=== PATIENT | male | born 1960 | race Caucasian/White ===

== ENCOUNTER 2020-09-14 10:57 | Outpatient (CLI) | payer OTHER, SELFPAY ==
--- NOTE | ~2020-09-14 | MR_ITS ---
EXAMINATION: MR knee RT wo con DATE: 09/14/2020 11:47 INDICATION: Anterior cruciate ligament tear. Internal derangement. Right knee pain. TECHNIQUE: Magnetic resonance imaging (MRI) of the right knee was performed without intravenous contr ast. Sequences included axial PD-weighted FS FSE, coronal PD-weighted FSE and PD-weighted FS FSE, sag ittal PD-weighted FSE, and sagittal T2-weighted FS FSE. COMPARISON: None. FINDINGS: Medial compartment: There is a complex tear involving body and posterior root of medial meniscus. There is full-thickness cartilage loss of femoral condyle involving the central and posterior articular surface with cortica l irregularity and mild subchondral edema-like signal intensity. There is cartilage surface irregular ity of tibial condyle. There are marginal osteophytes. Lateral compartment: There is a complex tear of posterior horn of lateral meniscus. Lateral compartment cartilage is sushil l. Patellofemoral compartment: Patellar cartilage is normal. Trochlear cartilage is normal. Ligaments and tendons: There is a complete tear of anterior cruciate ligament. There are changes of low-grade sprains of med ial collateral ligament and fibular collateral ligament characterized by thickening and increased sig nal intensity proximally. There is mild patellar tendinopathy. Fluid: There is a moderate-sized knee joint effusion. Heterogeneous signal intensity in Hoffa's fat pad is l ikely hematoma. There is trace fluid in a Medrano's cyst. There is mild prepatellar and superficial inf rapatellar bursitis. There is subcutaneous edema about the knee. IMPRESSION: 1. Severe chondrosis of medial compartment. 2. Complete tear of anterior cruciate ligament. 3. Tears of medial and lateral menisci. 4. Moderate-sized knee joint effusion. Reviewed, dictated and finalized at location A.
== END 2020-09-14 10:58 ==
PROVIDERS: PCP Nurse Practitioner Adult Health; Visit Provider Orthopaedic Surgery
DX: M25.461 Effusion, right knee (principal); S83.281A Other tear of lateral meniscus, current injury, right knee, initial encounter; S83.241A Other tear of medial meniscus, current injury, right knee, initial encounter; S83.511A Sprain of anterior cruciate ligament of right knee, initial encounter; X58.XXXA Exposure to other specified factors, initial encounter
CPT/HCPCS: 73721

== ENCOUNTER 2022-02-08 19:40 | Emergency (ER) | payer OTHER, SELFPAY ==
[2022-02-08 19:45] VITALS: BP 160/88; PULSE 72; RESP 19; TEMP 36; O2SAT 99
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
== END 2022-02-08 20:20 | disposition home or self-care (01) ==
PROVIDERS: Emergency Provider Nurse Practitioner; PCP Nurse Practitioner Adult Health
DX: J06.9 Acute upper respiratory infection, unspecified (principal); Z20.822 Contact with and (suspected) exposure to COVID-19; Z87.891 Personal history of nicotine dependence; M19.90 Unspecified osteoarthritis, unspecified site; K21.9 Gastro-esophageal reflux disease without esophagitis; I10 Essential (primary) hypertension; Z79.82 Long term (current) use of aspirin
CPT/HCPCS: 87426; 87804; 99213; C9803; G0463

== ENCOUNTER 2022-02-27 17:34 | Emergency (ER) | payer OTHER, SELFPAY ==
--- NOTE | ~2022-02-27 | XR_ITS ---
EXAMINATION: XR chest 2V DATE: 02/27/2022 18:31 INDICATION: Cough. TECHNIQUE: Frontal and lateral views of the chest were obtained. COMPARISON: CT abdomen and pelvis 09/19/2018 FINDINGS: There is no pneumonia, pleural effusion, or pneumothorax. The heart size is normal. There a re prominent paracardial fat pads. IMPRESSION: 1. No acute cardiopulmonary disease. Reviewed, dictated and finalized at location A. OLOGIC TECH
[2022-02-27 17:50] VITALS: BP 149/99; PULSE 73; RESP 16; TEMP 36.4; O2SAT 100
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
== END 2022-02-27 19:03 | disposition home or self-care (01) ==
PROVIDERS: Emergency Provider Nurse Practitioner; PCP Nurse Practitioner Adult Health
DX: J06.9 Acute upper respiratory infection, unspecified (principal); Z20.822 Contact with and (suspected) exposure to COVID-19; Z87.891 Personal history of nicotine dependence; M19.90 Unspecified osteoarthritis, unspecified site; K21.9 Gastro-esophageal reflux disease without esophagitis; I10 Essential (primary) hypertension; A79.82 Anaplasmosis [A. phagocytophilum]
CPT/HCPCS: 71046; 87081; 87426; 87804; 87880; 99213; C9803; G0463

== ENCOUNTER 2022-12-31 07:46 | Outpatient (CLI) | payer OTHER, SELFPAY ==
--- NOTE | ~2022-12-31 | XR_ITS ---
EXAMINATION: XR chest 2V 12/31/2022 08:30 INDICATION: 2 view chest PROCEDURE: 2 view chest COMPARISON: 02/27/2022 FINDINGS: There is a nodular density left upper thorax. No focal pneumonia, edema, pleural effusion. The cardiomediastinal silhouette is within normal limits. There are no pleural effusions. There is no pneumothorax suspected. IMPRESSION: 1: Nodular density left upper thorax. Recommend correlation with CT chest without contrast. Reviewed, dictated and finalized at location B. RETE CURER IMPRESSION: 1: Nodular density left upper thorax. Recommend correlation with CT chest with out contrast.
== END 2022-12-31 07:47 | disposition home or self-care (01) ==
PROVIDERS: PCP Family Medicine; Visit Provider Nurse Practitioner Family
DX: R59.0 Localized enlarged lymph nodes (principal)
CPT/HCPCS: 71046

== ENCOUNTER 2023-01-28 14:07 | Outpatient (CLI) | payer OTHER, SELFPAY ==
--- NOTE | ~2023-01-28 | CT_ITS ---
Clinical Indication: Enlarged lymph nodes CT Scan of the Chest with Contrast: Technique: Contiguous sections were acquired throughout the chest after intravenous administration of 75 cc of Omnipaque 350. Dose reduction technique was used on this scan by utilizing automated exposu re control and iterative reconstruction technique. The dose-length product (DLP) was 329.40 mGy-cm. Findings: There is no evidence of any significant mediastinal, hilar or axillary lymphadenopathy. There is no f illing defect in the pulmonary arterial tree to suggest pulmonary embolus. There is no evidence of ao rtic dissection or aneurysm. There is no evidence of pleural or pericardial effusion. The lungs are clear. No pulmonary nodules or infiltrates are noted. Images through the upper abdomen reveal probable diffuse fatty infiltration of liver. Impression: No lymphadenopathy. No abnormality seen in the thorax. Diffuse fatty infiltration of liver. Reviewed, dictated and finalized at [facility]. NT SOURCING SPECIALIST Impression: No lymphadenopathy. No abnormality seen in the thorax. Diffuse fatty infiltration of liver.
[2023-01-28 14:21] LABS: Estimated Glomerular Filt Rate > 60
== END 2023-01-28 14:08 | disposition home or self-care (01) ==
PROVIDERS: PCP Family Medicine; Visit Provider Nurse Practitioner Family
DX: R93.89 Abnormal findings on diagnostic imaging of other specified body structures (principal); R59.0 Localized enlarged lymph nodes
CPT/HCPCS: 71260; Q9967

== ENCOUNTER 2023-03-08 07:52 | Outpatient (CLI) | payer OTHER, SELFPAY ==
--- NOTE | ~2023-03-08 | XR_ITS ---
Left Shoulder Technique: AP and scapular Y views were obtained. Clinical History: Injury Findings: No fracture or dislocation is seen. Osseous alignment is anatomic. There is mild AC joint d egenerative change. Glenohumeral joint intact. Soft tissues are unremarkable. Impression: No acute fracture or dislocation seen. Degenerative changes AC joint. Reviewed, dictated and finalized at location . IRER HAIRSPRING Impression: No acute fracture or dislocation seen. Degenerative changes AC joint.
== END 2023-03-08 07:53 | disposition home or self-care (01) ==
LOC: ANHIMG 07:54
PROVIDERS: PCP Nurse Practitioner Family; Visit Provider Nurse Practitioner Family
DX: S49.92XA Unspecified injury of left shoulder and upper arm, initial encounter (principal); M19.012 Primary osteoarthritis, left shoulder; X58.XXXA Exposure to other specified factors, initial encounter
CPT/HCPCS: 73030

== ENCOUNTER 2023-05-23 16:22 | Outpatient (CLI) | payer OTHER, SELFPAY ==
--- NOTE | ~2023-05-23 | XR_ITS ---
XR lumbar spine 2-3V 05/23/2023 16:50 Indication: Low back pain Procedure: 3 views lumbar spine Comparison: No prior studies for comparison. Findings: Vertebral body heights are maintained. There is disc narrowing at L4-5 and L5-S1. There is facet hypertrophy at these levels. No acute fracture or traumatic malalignment. No evidence for spond ylolisthesis. Impression: 1: Mild-moderate lumbar spondylosis. Reviewed, dictated and finalized at location A. Impression: 1: Mild-moderate lumbar spondylosis.
--- NOTE | ~2023-05-23 | XR_ITS ---
XR_CERV2-3V_CR 05/23/2023 16:51 Indication: Cervicalgia Procedure: 4 view cervical spine Comparison: No prior studies for comparison. Findings: There is straightening of cervical lordosis. No prevertebral soft tissue swelling. There is disc narrowing and endplate hypertrophy at C4-5, C5-6 and C6-7 with reversal of cervical lordosis ce ntered at C6-7. There is multilevel uncinate and facet hypertrophy. There are emphysematous changes i n the lung apices. Impression: 1: Severe cervical spondylosis. Reviewed, dictated and finalized at location A. Impression: 1: Severe cervical spondylosis.
== END 2023-05-23 16:23 | disposition home or self-care (01) ==
LOC: ANHIMG 16:23
PROVIDERS: PCP Nurse Practitioner Family; Visit Provider Nurse Practitioner Family
DX: M47.896 Other spondylosis, lumbar region (principal); M47.892 Other spondylosis, cervical region
CPT/HCPCS: 72040; 72100

== ENCOUNTER 2023-05-24 08:14 | Outpatient (CLI) | payer BC, OTHER, SELFPAY ==
--- NOTE | ~2023-05-24 | XR_ITS ---
EXAMINATION: XR chest 2V DATE: 05/24/2023 08:46 INDICATION: Cough. TECHNIQUE: Frontal and lateral views of the chest were obtained. COMPARISON: Chest 2 views 12/31/22 FINDINGS: There is no pneumonia, pleural effusion, or pneumothorax. The heart size is normal. There a re prominent paracardial fat pads. IMPRESSION: 1. No acute cardiopulmonary disease. Reviewed, dictated and finalized at location A.
[2023-05-24 09:26] LABS: Influenza A QL RT-PCR Negative (Negative); Influenza B QL RT-PCR Negative (Negative); RSV RNA, RT-PCR Negative (Negative); SARS-CoV-2 RNA PCR Negative (Negative)
[2023-05-24 10:08] LABS: Folic Acid 3.6 ng/mL (2.76->20)
[2023-05-27 18:47] LABS: Red Blood Cell Folate 457 ng/mL RBC (>280)
[2023-06-18 10:23] LABS: Vitamin B6 59.3 ng/mL (2.1-21.7)
== END 2023-05-24 08:15 | disposition home or self-care (01) ==
LOC: ANHLAB 08:15
PROVIDERS: PCP Nurse Practitioner Family; Visit Provider Nurse Practitioner Family
DX: R05.9 Cough, unspecified (principal); R41.3 Other amnesia
CPT/HCPCS: 36415; 71046; 82607; 82746; 82747; 84207; 87637

== ENCOUNTER 2023-08-01 06:37 | Outpatient (CLI) | payer OTHER, SELFPAY ==
--- NOTE | 2023-08-06 08:57 | WPDNEUROLOGY ---
Neurology EEG Report General Information Date of Study: 08/01/23 TEST eeg DIAGNOSIS Mild cognitive impairment CONDITION OF RECORDING awake drowsy and sleep EEG NUMBER [id number] CLINICAL HISTORY patient reports he has noted a decline in his memory. He forgets what he was going into a room for, having difficulties with his work. There is family history of dementia. EEG DESCRIPTION Basic resting occipital frequency consists of low to medium voltage 8 to 10 hertz per 2nd alpha. Low-voltage beta activity seen diffusely admixed with waxing and waning posterior alpha rhythm. Hyperventilation not done. Photic stimulation produced normal drive. Bilateral symmetrical sleep activity is noted with symmetrical spindles as well. Non paroxysmal. Nonfocal. Non lateralizing. IMPRESSION Normal record
== END 2023-08-01 06:38 | disposition home or self-care (01) ==
LOC: ANHNEURO 06:38
PROVIDERS: PCP Nurse Practitioner Family; Visit Provider Psychiatry & Neurology Neurology
DX: G31.84 Mild cognitive impairment of uncertain or unknown etiology (principal); Z87.828 Personal history of other (healed) physical injury and trauma
CPT/HCPCS: 95816

== ENCOUNTER 2023-08-03 07:33 | Outpatient (CLI) | payer OTHER, SELFPAY ==
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
== END 2023-08-03 07:34 | disposition home or self-care (01) ==
PROVIDERS: PCP Nurse Practitioner Family; Visit Provider Psychiatry & Neurology Neurology
DX: G31.84 Mild cognitive impairment of uncertain or unknown etiology (principal); Z87.828 Personal history of other (healed) physical injury and trauma; M47.22 Other spondylosis with radiculopathy, cervical region; R90.82 White matter disease, unspecified
CPT/HCPCS: 70551

== ENCOUNTER 2023-12-05 13:02 | Outpatient (CLI) | payer OTHER, SELFPAY ==
[2023-12-05 14:04] LABS: Strep Group A RT-PCR NOT DETECTED (Negative)
[2023-12-05 14:22] LABS: Influenza A QL RT-PCR Negative (Negative); Influenza B QL RT-PCR Negative (Negative); RSV RNA, RT-PCR Negative (Negative); SARS-CoV-2 RNA PCR Negative (Negative)
== END 2023-12-05 13:03 | disposition home or self-care (01) ==
LOC: ANHLAB 13:05
PROVIDERS: PCP Nurse Practitioner Family; Visit Provider Nurse Practitioner Family
DX: J02.9 Acute pharyngitis, unspecified (principal); R05.9 Cough, unspecified; J34.89 Other specified disorders of nose and nasal sinuses; Z20.822 Contact with and (suspected) exposure to COVID-19
CPT/HCPCS: 87637; 87651

== ENCOUNTER 2024-03-11 08:23 | Outpatient (CLI) | payer OTHER, SELFPAY ==
--- NOTE | ~2024-03-11 | XR_ITS ---
EXAMINATION: XR sacrum coccyx min 2V DATE: 03/11/2024 08:44 INDICATION: Unspecified fall, initial encounter. TECHNIQUE: 3 views of the sacrum and coccyx were obtained. COMPARISON: None. FINDINGS: Alignment is normal. No fracture. There is mild osteoarthritis of the sacroiliac joints. Th ere is moderate lumbar spondylosis. IMPRESSION: 1. No fracture. Reviewed, dictated and finalized at location A. ASSEMBLY UTILITY WORKER IMPRESSION: 1. No fracture.
== END 2024-03-11 08:24 | disposition home or self-care (01) ==
LOC: ANHIMG 08:26
PROVIDERS: PCP Nurse Practitioner Family; Visit Provider Nurse Practitioner Family
DX: M53.3 Sacrococcygeal disorders, not elsewhere classified (principal); W19.XXXA Unspecified fall, initial encounter
CPT/HCPCS: 72220

== ENCOUNTER 2024-05-01 00:35 | Day surgery (SDC) | payer OTHER, SELFPAY ==
[2024-04-23 12:21] VITALS: BMI 32.3
--- OUTSIDE RECORDS SUMMARY | 2024-05-01 00:38 | XMS_ITS | Clinical Summary ---
Author Organization [facility] Care Team Providers Care Industrial Trainer Name Role Phone Unavailable Primary Care Provider Unavailabl e Social History Tobacco Use Types Packs/Day Years Used Date Smoking Tobacco: Never Assessed Sex and Gender Information Value Date Recorded Sex Assigned at Not on file Legal Sex Male 1:49 AM CDT Gender Identity Not on file Sexual Orientation Not on file Plan of Treatment Health Maintenance Due Date Last Done Comments Hepatitis C Virus (HCV) Screening 1960 Colonoscopy 08/03/2007 Colorectal Cancer Screening 08/03/2007 Cologuard 2012 Immunochemical Fecal Occult Blood 2012 Pneumococcal Immunization (5 0+ years) (1 of 1 - PCV) 2012 Zoster Immunization (1 of 2) 2012 PSA Discussion 2017 Influenza Immunization (#1) 2023 SARS-COV-2 Immunization ( season) 2023 01/31/2021, 05/23/2020, 04/14/2020 Respiratory Syncytial Virus (RSV) Immunization (Adult) (1 - 1-dose 75+ series) 2037 DTaP/Tdap/Td Immunization Discontinued 06/10/2018 TdaP Immunization Completed 06/10/2018 Hepatitis B Immunization Aged Out No longer eligible based on patient's age to complete this topic Meningococcal Immunization (ACWY) Aged Out No longer eligible based on patient's age to complete this topic Pneumococcal Immunization Combined Aged Out No longer eligible based on patient's age to complete this topic Rotavirus Immunization Aged Out No lo nger eligible based on patient's age to complete this topic
--- OUTSIDE RECORDS SUMMARY | 2024-05-01 00:38 | XMS_ITS | Clinical Summary ---
Author Organization [facility] Address [address] [place] [id number] Phone Care Team Providers Care Diagrammer Name Role Phone Unavailable Primary Care Provider Unavailabl e Social History Tobacco Use Types Packs/Day Years Used Date Smoking Tobacco: Never Assessed Sex and Gender Information Value Date Recorded Sex Assigned at Not on file Legal Sex Male 4:02 PM SR. PRICING ANALYST Gender Identity Not on file Sexual Orientation Not on file Plan of Treatment Health Maintenance Due Date Last Done Comments DTAP/TDAP/TD VACCINES (1 - Tdap) 1981 COLORECTAL SCREENING 08/03/2007 Colorectal Cancer Screening 08/03/2007 FIT-DNA Q 3 years 08/03/2007 FIT/FOBT Q 1 year 08/03/2007 Flex Sig/CT Colonography Q 5 years 08/03/2007 ZOSTER VACCINE (1 of 2) 2012 INFLUENZA VACCINE (#1) 2023 RSV VACCINE (60+ or ) (1 - 1-dose 75+ series) 2037 PNEUMOCOCCAL VACCINE 0-49 YEARS Aged Out No longer eligible based on patient's age to complete this topic Insurance [employer] [id number]
--- OUTSIDE RECORDS SUMMARY | 2024-05-01 00:38 | XMS_ITS | Encounter Summary ---
Author Organization [facility] Address [address] [place] [address] Phone Care Team Providers Care Director Sales And Marketing Name Role Phone Gina West FLUME TENDER Primary Care Provider [phone] Unknown, Notinfile Primary Care Provider Unavail Mariella Jay FLUME TENDER Primary Care Provider [phone] Encounter Details Date Type Department Care Team (Latest Contact Info) Description 04/23/2022 Orders Only [facility] Scanning, Provider Social History Tobacco Use Types Packs/Day Years Used Date Smoking Tobacco: Former Cigarettes 1.5 15 1 981 - 1995 Smokeless Tobacco: Never AUDIT-C Answer Date Recorded Q1: How often do you have a drink containing alcohol? Never 03/20/2022 Q2: How many drinks containi ng alcohol do you have on a typical day when you are drinking? Patient does not drink Q3: How often do you have si x or more drinks on one occasion? Never 03/20/2022 Sex and Gender Information Value Date Recorded Sex Assigned at Not on file Legal Sex Male 11:46 AM ENFORCEMENT SAFETY OFFICER Gender Identity Male 02/13/2021 12:32 PM ENFORCEMENT SAFETY OFFICER Sexual Orientation Straight 09/22/2020 1: 13 PM CDT documented as of this encounter Plan of Treatment Not on file documented as of this encounter Goals Goal Patient Goal Type Associated Problems Recent Progress Patient-Stated? Author ABDULKADIR Chronic Pain Care Plan Chronic Care Management Worsening( 1:27 PM CDT) Jessica Faulkner RN Note: Problem: Chronic Pain Goals: 1. Minimize further functional decline 2. Maximize quality of life 3. Control pain Strategies: - Activity/exercise program recommendation - Conservative stepwise pain medicine strategy with multi-disciplinary approach - Recommend healthy lifestyle strategies and compensatory methods as needed documented as of this encounter Procedures Procedure Name Priority Date/Time Associated Diagnosis Comments CARDIOLOGY DOCUMENT SCAN 04/23/2022 documented in this encounter Results * Cardiology Document Scan (04/23/2022) Anatomical Region Laterality Modality Other us Provider Scanning [facility] PROCEDURES Final Result documented in this encounter Visit Diagnoses Not on filedocumented in this encounter Additional Health Concerns Infection Onset Date Last Indicated Resolved Time COVID: Suspected 01/26/2024 01/26/2024 01/26/2024 7:47 PM ENFORCEMENT SAFETY OFFICER documented as of this encounter Care Teams Director Sales And Marketing Relationship Specialty Start Date End Date Gina West NP [facility] [address] PCP - General Nurse Practitioner 09/21/21 11/26/22 Unknown, Notinfile PCP - General 11/27/22 01/06/24 Mariella Moon NP [address] [place] [address] PCP - General Family Medicine 01/07/24 documented as of this encounter
--- OUTSIDE RECORDS SUMMARY | 2024-05-01 00:38 | XMS_ITS | Encounter Summary ---
Author Organization [facility] Address [address] [place] [address] Phone Care Team Providers Care Welder Apprentice Arc Name Role Phone Gina West PARTS SALES ADVISOR Primary Care Provider [phone] Unknown, Notinfile Primary Care Provider Unavail Mariella Jay PARTS SALES ADVISOR Primary Care Provider [phone] Encounter Details Date Type Department Care Team (Latest Contact Info) Description 05/03/2022 Orders Only [facility] Scanning, Provider [...] on file Legal Sex Male 11:46 AM HIDE SPREADER Gender Identity Male 02/13/2021 12:32 PM HIDE SPREADER Sexual Orientation Straight 09/22/2020 1: 13 PM [...] Date/Time Associated Diagnosis Comments CARDIOLOGY DOCUMENT SCAN 05/03/2022 documented in this encounter Results * Cardiology Document Scan (05/03/2022) Anatomical Region Laterality Modality Other us Provider Scanning [facility] CARDIAC SERVICES PROCEDURES Final Result documented in this encounter Visit Diagnoses Not on filedocumented in this encounter Additional Health Concerns Infection Onset Date Last Indicated Resolved Time COVID: Suspected 01/26/2024 01/26/2024 01/26/2024 7:47 PM HIDE SPREADER documented as of this encounter Care Teams Welder Apprentice Arc Relationship Specialty Start Date End Date Gina West NP [facility] [place] [address] PCP - General Nurse Practitioner 09/21/21 11/26/22 Unknown, Notinfile PCP - General 11/27/22 01/06/24 Mariella Moon NP [address] [place] [address] PCP - General Family Medicine 01/07/24 documented as of this encounter
--- OUTSIDE RECORDS SUMMARY | 2024-05-01 00:38 | XMS_ITS | Clinical Summary ---
Author Organization [facility] Address [address] [place] [address] Care Team Providers Care Activity Coordinator Name Role Phone Erik Szymanski MD Unavailable [phone] Allergies Active Allergy Reactions Criticality Noted Date Comments Tape Unknown 05/22/2017 Medications vitamin B-12 1000 MCG tablet Take 1,000 mcg by mouth daily. Active escitalopram 20 MG tabletIndications :Current severe episode of major depressive disorder without psychotic features without prior episode ([facility]HS/HCC) Take 1 tablet (20 mg total) by mouth daily. 30 tablet 5 9 Active aripiprazole 2 MG tablet Take 2 mg by mouth daily. 1 9 Active aspirin 81 MG tablet Take 1 tablet (81 mg total) by mouth daily. 9 Active HYDROXYZINE 25 MG tabletIndications :Panic attack TAKE 1 TABLET EVERY 8 HOURS NEEDED FOR ANXIETY. 45 tablet 1 9 Active trazodone 50 MG tabletIndications :Current severe episode of major depressive disorder without psychotic features without prior episode ([facility] HHS/HCC),Insomnia due to other mental disorder Take 1 tablet (50 mg total) by mouth nightly at bedtime. 30 tablet 1 9 Active clonazePAM 0.5 MG tablet Take 0.5 mg by mouth 2 (two) times daily. 0 9 Active OMEPRAZOLE 40 MG capsuleIndication s:Gastroesophagea l reflux disease, esophagitis presence not specified TAKE 1 CAPSULE DAILY . TAKE 30 MINUTES BEFORE A MEAL. 90 capsule 1 9 Active nitroglycerin 0.[address] 1 tablet (0.4 mg total) under the tongue every 5 (five) minutes as needed for Chest Pain. If taking the 3rd dose call 911 25 tablet 1 9 Active LOSARTAN 25 MG tabletIndications :Essential hypertension TAKE 1 TABLET DAILY DIRECTED. 30 tablet 1 9 Active isosorbide mononitrate ER 30 MG 24 hr tablet Take 1 tablet (30 mg total) by mouth daily. Call to make and keep appt 7 tablet 0 Active Active Problems Problem Noted Date Diagnosed Date ANAYA (dyspnea on exertion) 06/03/2018 Essential hypertension 06/03/2018 Mixed hyperlipidemia 03/14/2018 Assessment & Plan (03/14/2018 9:31 AM RRT): Will d/c crestor and in a couple of weeks can try taking atorvastatin Current severe episode of ma jeanine depressive disorder without psychotic features without prior episode ([facility]) 02/17/2018 Assessment & Plan (04/30/2018 2:44 PM CDT): Psychologist working on getting appt with psychiatrist. He has a signed release of medical records form for us to send our notes to them. In meantime will con't lexapro and start trazodone 50mg qHs to see if helps with frequent awakenings. Assessment & Plan (03/14/2018 9:30 AM RRT): Encouraged to con't with therapist and to get on schedule with psychiatrist. He voiced understanding Will increase lexapro to 20mg daily and con't PRN atarax Assessment & Plan (02/17/2018 3:12 PM RRT): Will start lexapro. Discussed side effects and that may take a while to take effect. -Placed order for psych they will call and let us know if we need to send anything to the office -Go to ED with SI thoughts become plan. They are both aware and understand Panic attack 02/17/2018 Assessment & Plan (02/17/2018 3:13 PM RRT): Will do PRN atarax as lexapro is kicking in Chest pain 11/01/2017 Immunizations Name Administration Dates Next Due Tdap (Generic) 06/10/2018 Tdap (Historical Only-select from magnify glass) 06/10/2018 Family History Medical History Relation Comments Cancer Brother Heart Disease Brother Diabetes Father Heart Disease Father Heart Disease Maternal Grandfather Heart Disease Maternal Grandmother Dementia Mother Heart Disease Mother Parkinson's Disease Mother Heart Disease Paternal Grandfather Heart Disease Paternal Grandmother Relation Status Comments Brother Father Maternal Grandfather Maternal Grandmother Mother Paternal Grandfather Paternal Grandmother Social History Tobacco Use Types Packs/Day Years Used Date Smoking Tobacco: Former Cigarettes Q uit: 11/02/1995 Smokeless Tobacco: Never Alcohol Use Standard Drinks/Week Comments No 0 (1 standard drink = 0.6 oz pur e alcohol) AUDIT-C Answer Date Recorded Frequency of Alcohol Consumption Never 11/01/2017 Average Number of Drinks Not on file 018 Frequency of Binge Drinking Not on file 10/13 PHQ-2 Answer Date Recorded PHQ-2 Score 6 05/09/2018 Sex and Gender Information Value Date Recorded Sex Assigned at Not on file Legal Sex Male 7:43 PM CDT Gender Identity Not on file Sexual Orientation Straight 11/01/2017 12 :33 PM CDT Last Filed Vital Signs Vital Sign Reading Time Taken Comments Blood Pressure 133/85 06/16/2018 6:22 PM CDT Pulse 66 06/16/2018 6:22 PM CDT Temperature 36.7 C (98.1 F) 06/16/2018 6:22 PM CDT Respiratory Rate 18 06/16/2018 6:22 PM CDT Oxygen Saturation 95% 06/16/2018 6:22 PM CDT Inhaled Oxygen Concentration - - Weight 93 kg (205 lb) 06/16/2018 5:09 PM CDT Height 167.6 cm (5' 6 ) 06/16/2018 5:09 PM CDT Body Mass Index 33.09 06/16/2018 5:09 PM CDT Plan of Treatment Health Maintenance Due Date Last Done Comments Annual Physical 1965 Hepatitis C 1980 Zoster Vaccines (1 of 2) 2012 COVID-19 Vaccine (2023-2 5 season) 2023 Influenza Adult (#1) 2023 Colorectal Cancer Screening Colonoscopy (10 Years) 04/10/2027 04/10/2017 DTaP, Tdap and Td Vaccines ( 3 - Td or Tdap) 06/10/2028 06/10/2018, 06/10/2018 RSV Immunization or 60+ Years (1 - 1-dose 75+ series) 2037 Meningococcal B Vaccine Aged Out No l onger eligible based on patient's age to complete this topic Meningococcal Vaccine Aged Out No clay nathalie eligible based on patient's age to complete this topic Pneumococcal Vaccine: Pediatrics (0 to 5 Years) and At-Risk Patients (6 to 64 Years) Aged Out No longer eligible b ased on patient's age to complete this topic RSV Immunizations Under 20 Months Aged Out No longer eligible b ased on patient's age to complete this topic Procedures Procedure Name Priority Date/Time Associated Diagnosis Comments COLONOSCOPY Routine 04/10/2017 12:00 AM RRT from Last 3 Months or Most Recently Relevant to Health Maintenance Results * Colonoscopy (04/10/2017 12:00 AM RRT) 04/10/2017 04/10/2017 Narrative [employer] TO EPIC CONVERSION - 04/10/2017 12:00 AM RRT Documented hx of procedure Procedure Note Meghana Angeles MD - 12/15/2017 Documented hx of procedure us Generic Jean Claude Angeles MD GI PROCEDURE ORDERABLES Final Result Performing Organization Address City/State/[facility] Co de Phone Number [employer] TO EPIC CONVERSION from Last 3 Months or Most Recently Relevant to Health Maintenance Insurance * Guarantor: Finn Blood V Account Type Relation to Patient Date of Phone Billing Address Personal/Family Self 1960 [address] [place] [address] [facility] Member Subscriber Plan / Payer (Ef fective 2020-Present) Name:Finn Blood V Relation to Subscriber:Self Name:Finn Blood V Payer ID:[id number] (NAIC) Type:Not on file Address: [address] [address] [place] [address] * Guarantor: Finn Blood V Account Type Relation to Patient Date of Phone Billing Address Personal/Family Self 1960 [address] [place] [address] Care Teams Activity Coordinator Relationship Specialty Start Date End Date Erik Szymanski MD [facility] [address] [place], [place] [id number] [place] [employer]ands[employer] Operator CARDIOVASCULAR DISEASE 11/25/17
--- OUTSIDE RECORDS SUMMARY | 2024-05-01 00:38 | XMS_ITS | CONTINUITY OF CARE DOCUMENT ---
Author Name karenfrida tae Address Unknown Organization [facility] Address [address] [address] [place] [address] Phone [phone] Care Team Providers Care Blood Bank Laboratory Technologist Name Role Phone Kulwant Saba MD Unavailable [phone] CHRISTY VILLELA, HARSH Unavailable CHRISTY VILLELA, HARSH Unavailable [phone] PROBLEMS Condition Status Date Provider Notes Cardiology examination active Kulwant roe MD HTN, unspecified active Kulwant Saba MD Hyperlipidemia active Kulwant Saba MD Obesity active Kulwant Saba MD ENCOUNTERS Date Type Provider Location Encounter Diag nosis - In-person encounter Office Visit Kulwant Saba MD [place] [facility] HyperlipidemiaObesity - In-person encounter Office Visit Kulwant Saba MD [place] [facility] Cardiology examinationHTN, unspecified VITAL SIGNS Date Observation Value Provider Body Mass Index (Ratio) 34.05 kg/m2 Tricia Saba MD blood pressure, diastolic 84 mm[Hg] St areli Iqbal blood pressure, systolic 149 mm[Hg] Byron Iqbal oxygen saturation, oximetry 97 % Ni Iqbal pulse rate 65 /min Ni Iqbal respiratory rate E&M 18 /min Ni funes weight E&M 211 [lb_av] Ni Iqbal height E&M 66 [in_i] Ni Rasheed Body Mass Index (Ratio) 34.70 kg/m2 Tricia Saba MD blood pressure, diastolic 100 mm[Hg] Ninoska aliciajack Gonzalez blood pressure, systolic 160 mm[Hg] Matthew connie Gonzalez oxygen saturation, oximetry 97 % Rosio Gonzalez pulse rate 73 /min Rosio lopez height E&M 66 [in_i] Rosio lopez weight E&M 215 [lb_av] Rosio lopez respiratory rate E&M 16 /min Tiesha Gonzalez HISTORY OF MEDICATION USE Medication Status Instructions Dates Provider Indications Com ments atorvastatin 40 mg tablet active Take 1 tablet by mouth once a day Kulwant Saba MD amlodipine 10 mg tablet active Take 1 tablet by mouth once a day Kulwant Saba MD tramadol 50 mg tablet active Matthew connie Gonzalez omeprazole 40 mg capsule,delayed release(DR/EC) active Rosio Gonzalez meloxicam 15 mg tablet active TAKE 1 TABLET BY MOUTH ONCE DAILY Rosio Gonzalez benzonatate 200 mg capsule completed TAKE 1 CAPSULE BY MOUTH THREE TIMES A DAY NEEDED FOR COUGH - Kulwant Saba MD celecoxib 100 mg capsule active Rosio Gonzalez methylprednisolone 4 mg tablets,dose pack completed - Kulwant Saba MD Vyvanse 10 mg capsule active [facility] connie Gonzalez tamsulosin 0.4 mg capsule active Rosio Gonzlaez cyclobenzaprine 10 mg tablet active Rosio Gonzalez isosorbide mononitrate 30 mg tablet extended release 24 hr completed - Kulwant Saba MD albuterol sulfate 90 mcg/actuation HFA aerosol inhaler completed - Kulwant Saba MD prednisone 50 mg tablet completed - Kulwant Saba MD methocarbamol 750 mg tablet completed - Kulwant Saba MD SOCIAL HISTORY Date Observation Value Provider social history E&M S moking History: Renetta radha is a former smoker. Kulwant Saba MD social history reviewed E&M revi ewed - no changes required Kulwant Saba MD smoking history, tot al pack/day 1.5ppd Ni Iqbal cigarette use yes Ni Iqbal smoking status Former smoker Ni Iqbal drug use no Kulwant Saba MD alcohol use no Kulwant Saba MD smoking history, tot al pack/day 1.5ppd Kulwant Saba MD cigarette use yes Kulwant Saba MD social history reviewed E&M sam ewed - no changes required Kulwant Saba MD social history E&M S moking History: P radha is a former smoker. Kulwant Saba MD smoking status Former smoker Kulwant Bray ra, MD INSURANCE PROVIDERS Payer name Policy type / Coverage type [facility] ID [employer] (2) Medicaid [id number] ADVANCE DIRECTIVES Name Date DISCUSSED - NO DECISION MADE DISCUSSED - NO DECISION MADE TREATMENT PLAN Date Name Performer [id number],S, Kulwant Bray ra, [place] [id number],W, H is updated medication list for this problem includes: Atorvastatin 40 Mg Tablet (Atorvastatin) ..... Take 1 tablet by mouth once a day Kulwant Saba MD [id number],B, B P today: 149/84 P rior BP: 160/100 (04/23/2022) His updated medication list for this problem includes: Amlodipine 10 Mg Tablet (Amlodipine) ..... Take 1 tablet by mouth once a day Kulwant Saba MD [id number],C,W ill check echo, stress regadenoson and lipd panel for further evaluation Kulwant Saba MD [id number],C, H is updated medication list for this problem includes: Amlodipine 5 Mg Tablet (Amlodipine) ..... Take 1 tablet by mouth once a day take 1 tablet by mouth every day Kulwant Saba MD Cardiology Kulwant Lopez Cardiology: H is updated medication list for this problem includes: Atorvastatin 40 Mg Tablet (Atorvastatin) ..... Take 1 tablet by mouth once a day Kulwant Saba MD Cardiology: B P today: 149/84 P rior BP: 160/100 (04/23/2022) His updated medication list for this problem includes: Amlodipine 10 Mg Tablet (Amlodipine) ..... Take 1 tablet by mouth once a day Kulwant Saba MD Cardiology:Will chec k echo, stress regadenoson and lipd panel for further evaluation Kulwant Saba MD Cardiology: H is updated medication list for this problem includes: Amlodipine 5 Mg Tablet (Amlodipine) ..... Take 1 tablet by mouth once a day take 1 tablet by mouth every day Kulwant Saba MD Date Name LIPID PANEL LIPID PANEL Stress Regadenoson Complete Echo HISTORY OF PROCEDURES Procedure Date Procedure Name Provider Procedure Notes S tatus EKG Kulwant Saba MD complet ed
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
--- OUTSIDE RECORDS SUMMARY | 2024-05-01 00:38 | XMS_ITS | Referral Summary ---
Author Organization [facility] Address [address] [place] [address] [place] [address] Phone Care Team Providers Care Appliance Adjuster Name Role Phone Mariella Moon NP Primary Care Provider [phone] Allergies Active Allergy Reactions Criticality Noted Date [...] (12/06/2020): Added automatically from request for surgery [id number] Osteoarthritis 07/12/2020 Degeneration of lumbar intervertebral disc 01/05 Chronic low back pain 12/04/2018 Hypertriglyceridemia 12/04/2018 Attention deficit hyperactiv ity disorder, predominantly inattentive type 11/20/2018 Benign prostatic hyperplasia with urinary obstru ction 11/20/2018 Mixed anxiety and depressive disorder 11/20/2018 Obesity 11/20/2018 Obstructive sleep apnea syndrome 11/20/2018 Gastroesophageal reflux disease without esophagi tis 11/20/2018 Family history of colon cancer 11/20/2018 Coronary arteriosclerosis in [place] artery 11/20 Essential hypertension 06/03/2018 Assessment & Plan (12/19/2023 4:49 PM SLATE HANDLER): As above. Also asked him to send some updated readings via [employer] in a couple of weeks. ANAYA (dyspnea [...] 11/01/2017 Assessment & Plan (12/19/2023 4:49 PM SLATE HANDLER): [age] year male with hypertension presents for [...] Immunization Administration Dates Next Due Tdap 06/10/2018 Social History Tobacco Use Types Packs/Day Years Used Date Smoking Tobacco: Former Cigarettes 1.5 15 1 981 - 1995 Smokeless Tobacco: Never Tobacco Cessation:Counseling Given: Not Answered AUDIT-C Answer Date Recorded Q1: How often do you have a drink containing alc ohol? Never 11/27/2022 Average Number of Drinks Not on file 023 Frequency of Binge Drinking Not on file 11/11 Sex and Gender Information Value Date Recorded Sex Assigned at Not on file Legal Sex Male 11:46 AM SLATE HANDLER Gender Identity Male 02/13/2021 12:32 PM SLATE HANDLER Sexual Orientation Straight 09/22/2020 1: 13 PM CDT Last Filed Vital Signs Vital Sign Reading Time Taken Comments Blood Pressure 116/77 01/26/2024 7:34 PM SLATE HANDLER Pulse 77 01/26/2024 7:34 PM SLATE HANDLER Temperature 36.5 C (97.7 F) 11/27/2022 1:19 PM CDT Respiratory Rate 20 01/26/2024 7:34 PM SLATE HANDLER Oxygen Saturation 96% 01/26/2024 7:34 PM SLATE HANDLER Inhaled Oxygen Concentration - - Weight 95.3 kg (210 lb) 01/26/2024 7:34 PM SLATE HANDLER Height 167.6 cm (5' 6 ) 12/19/2023 4:11 PM SLATE HANDLER Body Mass Index 33.89 12/19/2023 4:11 PM SLATE HANDLER Plan of Treatment Not on file Goals Goal Patient Goal Type Associated Problems [...] as needed Medical Devices Implanted Type Area Head Wood Grinder Device Identifier Shelf Expiration Date Model / Serial / Lot Arthrex Inc Ar-1588-Rtt Device Fxatn Tightrope Fibertag Acl Right Disp - [id number] Implanted:Qty: 1 on 01/17/2021 by Leobardo Glass MD at [facility] [place] Right: Knee [employer] 11/10/2025 AR-1588-RTT / / [id number] Ar[employer] Ar-4030c-10 Fastthread 10mm 30mm Knee Screw Interference Biocomposite - [id number] Implanted:Qty: 1 on 01/17/2021 by Leobardo Glass MD at [facility] Right: Knee [employer] 06/10/2024 AR-4030C-10 / / [id number] Ar[employer] Ar-2324bcc Swivelock C 4.75mm 19.1mm Closed Eyelet Vent [place] Suture - [id number] Implanted:Qty: 1 on 01/17/2021 by Leobardo Glass MD at [facility] [place] Right: Knee [employer] 09/10/2024 AR-2324BCC / / [id number] Procedures Procedure Name Priority Date/Time Associated Diagnosis [...] of Phone Billing Address Personal/Family Self 1960 [address] [place] [address] [facility] Member Subscriber Plan / Payer (Ef fective 2021-Present) Name:Finn Blood V Relation to Subscriber:Self Name:Finn Blood V Payer ID:[id number] (NAIC) Group ID:Not on file Type:MEDICAID RISK OTHER Address: ATTN: CLAIMS DEPT [address] [place] [address] * Guarantor: Finn Blood V Account Type Relation to Patient Date of Phone Billing Address Personal/Family Self 1960 [address] [place], [place] [id number] [facility] CHOICE PL[facility] Member Subscriber Plan / Payer (Ef fective 2023-Present) Name:Finn Blood V Relation to Subscriber:Self Name:Finn Blood V Payer ID:[id number] (NAIC) Type:[facility] HMO/PPO Address: [address] [address] [place] [address] * Guarantor: Finn Blood V Account Type Relation to Patient Date of Phone Billing Address Personal/Family Self 1960 [address] [place] [address] [facility] CHOICE PLUS Member Subscriber Plan / Payer (Ef fective 2023-Present) Name:Finn Blood V Relation to Subscriber:Self Name:Finn Blood V Payer ID:[id number] (NAIC) Type:[facility] HMO/PPO Address: [address] [address] [place] [id number] Care Teams Appliance Adjuster Relationship Specialty Start Date End Date Mariella Moon NP [address] [place] [address] PCP - General Family Medicine 01/07/24
--- OUTSIDE RECORDS SUMMARY | 2024-05-01 00:38 | XMS_ITS | Encounter Summary ---
Author Organization [facility] Address [address] [place] [address] Phone Care Team Providers Care Elevator Builder Name Role Phone Gina West EMERGENCY SERVICE WORKER Primary Care Provider [phone] Unknown, Notinfile Primary Care Provider Unavail Mariella Jay EMERGENCY SERVICE WORKER Primary Care Provider [phone] Encounter Details Date Type Department Care Team (Latest Contact Info) Description 06/18/2022 Orders Only [facility] Scanning, Provider [...] on file Legal Sex Male 11:46 AM ROPING MACHINE TENDER Gender Identity Male 02/13/2021 12:32 PM ROPING MACHINE TENDER Sexual Orientation Straight 09/22/2020 1: 13 PM [...] Date/Time Associated Diagnosis Comments CARDIOLOGY DOCUMENT SCAN 06/18/2022 documented in this encounter Results * Cardiology Document Scan (06/18/2022) Anatomical Region Laterality Modality Other us Provider Scanning CV CARDIAC SERVICES PROCEDURES Final Result documented in this encounter Visit Diagnoses Not on filedocumented in this encounter Additional Health Concerns Infection Onset Date Last Indicated Resolved Time COVID: Suspected 01/26/2024 01/26/2024 01/26/2024 7:47 PM ROPING MACHINE TENDER documented as of this encounter Care Teams Elevator Builder Relationship Specialty Start Date End Date Gina West NP [facility] [place] [address] PCP - General Nurse Practitioner 09/21/21 11/26/22 Unknown, Notinfile PCP - General 11/27/22 01/06/24 Mariella Moon NP [address] [place] [address] PCP - General Family Medicine 01/07/24 documented as of this encounter
[2024-05-01 10:09] VITALS: BP 139/89; PULSE 80; RESP 18; TEMP 36.1; O2SAT 98; BMI 31.7
[2024-05-01] MEDS: LACTATED RINGERS 1,000 ML 150 ML IV CONT (10:16)
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
[2024-05-01 11:05] VITALS: BP 108/72; PULSE 65; RESP 17; O2SAT 96
[2024-05-01 11:15] VITALS: BP 103/68; PULSE 65; RESP 15; O2SAT 96
[2024-05-01 11:25] VITALS: BP 113/79; PULSE 66; RESP 16; O2SAT 97
== END 2024-05-01 12:15 | disposition home or self-care (01) ==
PROVIDERS: PCP Nurse Practitioner Family; Referring Provider Nurse Practitioner Family; Visit Provider Internal Medicine Gastroenterology
PROC: 0DJD8ZZ Inspection of Lower Intestinal Tract, Via Natural or Artificial Opening Endoscopic (ICD-10-PCS; CPT 45378; principal; 2024-05-01 11:30)
DX: Z12.11 Encounter for screening for malignant neoplasm of colon (principal); K57.30 Diverticulosis of large intestine without perforation or abscess without bleeding; K64.8 Other hemorrhoids; Z86.0100 Personal history of colon polyps, unspecified; Z87.891 Personal history of nicotine dependence; E66.9 Obesity, unspecified; Z68.31 Body mass index [BMI] 31.0-31.9, adult
CPT/HCPCS: 45378; J2003; J2704; J7120

== ENCOUNTER 2025-01-11 08:01 | Outpatient (CLI) | payer OTHER, SELFPAY ==
--- OUTSIDE RECORDS SUMMARY | 2025-01-11 08:09 | XMS_ITS | Encounter Summary ---
Author Organization [facility] Address [address] [place] [address] Phone Care Team Providers Care Licensed Optician Name Role Phone Gina West VISITOR SERVICES ASSOCIATE Primary Care Provider [phone] Unknown, Notinfile Primary Care Provider Unavail Mariella Jay VISITOR SERVICES ASSOCIATE Primary Care Provider [phone] Encounter Details Date Type Department Care Team [...] on file Legal Sex Male 11:46 AM CHANNEL INSTALLER Gender Identity Male 02/13/2021 12:32 PM CHANNEL INSTALLER Sexual Orientation Straight 09/22/2020 1: 13 PM [...] COVID: Suspected 01/26/2024 01/26/2024 01/26/2024 7:47 PM CHANNEL INSTALLER documented as of this encounter Care Teams Licensed Optician Relationship Specialty Start Date End Date Gina West NP [facility] [place] [address] PCP - General Nurse Practitioner 09/21/21 11/26/22 Unknown, Notinfile PCP - General 11/27/22 01/06/24 Mariella Moon NP [address] [place] [address] PCP - General Family Medicine 01/07/24 documented as of this encounter
--- OUTSIDE RECORDS SUMMARY | 2025-01-11 08:09 | XMS_ITS | Clinical Summary ---
Author Organization [facility] Address [address] [place] [address] Phone Care Team Providers Care Carpenter Repairer Name Role Phone Mariella Moon NP Primary Care Provider [phone] Allergies Active Allergy Reactions Criticality Noted Date [...] (12/06/2020): Added automatically from request for surgery [id number] Osteoarthritis 07/12/2020 Degeneration of lumbar intervertebral disc 01/05 Chronic low back pain 12/04/2018 Hypertriglyceridemia 12/04/2018 Attention deficit hyperactiv ity disorder, predominantly inattentive type 11/20/2018 Benign prostatic hyperplasia with urinary obstru ction 11/20/2018 Mixed anxiety and depressive disorder 11/20/2018 Obesity 11/20/2018 Obstructive sleep apnea syndrome 11/20/2018 Gastroesophageal reflux disease without esophagi tis 11/20/2018 Family history of colon cancer 11/20/2018 Coronary arteriosclerosis in [place] artery 11/20 Essential hypertension 06/03/2018 Assessment & Plan (12/19/2023 4:49 PM TIMING MACHINE OPERATOR): As above. Also asked him to send some updated readings via [facility] in a couple of weeks. ANAYA (dyspnea [...] 11/01/2017 Assessment & Plan (12/19/2023 4:49 PM TIMING MACHINE OPERATOR): [age] year male with hypertension [...] on file Legal Sex Male 11:46 AM TIMING MACHINE OPERATOR Gender Identity Male 02/13/2021 12:32 PM TIMING MACHINE OPERATOR Sexual Orientation Straight 09/22/2020 1: 13 PM CDT Last Filed Vital Signs Vital Sign Reading Time Taken Comments Blood Pressure 116/77 01/26/2024 7:34 PM TIMING MACHINE OPERATOR Pulse 77 01/26/2024 7:34 PM TIMING MACHINE OPERATOR Temperature 36.5 C (97.7 F) 11/27/2022 1:19 PM CDT Respiratory Rate 20 01/26/2024 7:34 PM TIMING MACHINE OPERATOR Oxygen Saturation 96% 01/26/2024 7:34 PM TIMING MACHINE OPERATOR Inhaled Oxygen Concentration - - Weight 95.3 kg (210 lb) 01/26/2024 7:34 PM TIMING MACHINE OPERATOR Height 167.6 cm (5' 6) 12/19/2023 4:11 PM TIMING MACHINE OPERATOR Body Mass Index 33.89 12/19/2023 4:11 PM TIMING MACHINE OPERATOR Plan of Treatment Health Maintenance Due Date Last Done Comments Colon Cancer Screening-Colonoscopy 1960 Depression Screening 1960 Prostate Cancer Screening-PSA 1960 Hepatitis B Screening 1980 Regular Well Visit/Exam 18-64 1980 Zoster Vaccine (1 of 2) 2012 Covid-19 Vaccine ( - 2024-2 6 season) 2024 02/02/2021, 05/23/2020, 04/14/2020 Influenza Vaccine (#1) 2024 DTaP/Tdap/Td Vaccine (2 - Td or Tdap) [...] as needed Medical Devices Implanted Type Area Testing Manager Device Identifier Shelf Expiration Date Model / Serial / Lot [employer] Ar-1588-Rtt Device Fxatn Tightrope Fibertag Acl Right Disp - [id number] Implanted:Qty: 1 on 01/17/2021 by Leobardo Glass MD at [facility] [place] Right: Knee [employer] 11/10/2025 AR-1588-RTT / / [id number] [employer] Ar-4030c-10 Fastthread 10mm 30mm Knee Screw Interference Biocomposite - [id number] Implanted:Qty: 1 on 01/17/2021 by Leobardo Glass MD at [facility] [place] Right: Knee [employer] 06/10/2024 AR-4030C-10 / / [id number] [employer] Ar-2324bcc Swivelock C 4.75mm 19.1mm Closed Eyelet Vent [place] Suture - [id number] Implanted:Qty: 1 on 01/17/2021 by Leobardo Glass MD at [facility] [place] Right: Knee [employer] 09/10/2024 AR-2324BCC / / [id number] Procedures Procedure Name Priority Date/Time Associated Diagnosis [...] of Phone Billing Address Personal/Family Self 1960 [address] [place] [address] [facility] Member Subscriber Plan / Payer (Ef fective 2021-Present) Name:Finn Blood V Relation to Subscriber:Self Name:Finn Blood V Payer ID:[id number] (NAIC) Group ID:Not on file Type:MEDICAID RISK OTHER Address: ATTN: CLAIMS DEPT [address] [place] [address] * Guarantor: Finn Blood V Account Type Relation to Patient Date of Phone Billing Address Personal/Family Self 1960 [address] [place], [place] [id number] [facility] CHOICE PLUS Member Subscriber Plan / Payer (Ef fective 2023-Present) Name:Finn Blood V Relation to Subscriber:Self Name:Finn Blood V Payer ID:[id number] (NAIC) Type:[facility] HMO/PPO Address: [address] [address] [place] [address] * Guarantor: Finn Blood V Account Type Relation to Patient Date of Phone Billing Address Personal/Family Self 1960 [address] [place] [address] [facility] CHOICE PLUS Member Subscriber Plan / Payer (Ef fective 2023-Present) Name:Finn Blood Vandana Relation to Subscriber:Self Name:Finn Blood Vandana Payer ID:[id number] (NAIC) Type:[facility] HMO/PPO Address: [address] [address] [place] [address] Care Teams Carpenter Repairer Relationship Specialty Start Date End Date Mariella Moon NP [address] [place] [address] PCP - General Family Medicine 01/07/24
--- OUTSIDE RECORDS SUMMARY | 2025-01-11 08:09 | XMS_ITS | Encounter Summary ---
Author Organization [facility] Address [address] [place] [address] Phone Care Team Providers Care Operating Room Assistant Name Role Phone Gina West BLUE LINE TRIMMER Primary Care Provider [phone] Unknown, Notinfile Primary Care Provider Unavail Mariella Jay BLUE LINE TRIMMER Primary Care Provider [phone] Encounter Details Date Type Department Care Team [...] on file Legal Sex Male 11:46 AM MANAGEMENT PROFESSOR Gender Identity Male 02/13/2021 12:32 PM MANAGEMENT PROFESSOR Sexual Orientation Straight 09/22/2020 1: 13 PM [...] COVID: Suspected 01/26/2024 01/26/2024 01/26/2024 7:47 PM MANAGEMENT PROFESSOR documented as of this encounter Care Teams Operating Room Assistant Relationship Specialty Start Date End Date Gina West NP [facility] [place] [address] PCP - General Nurse Practitioner 09/21/21 11/26/22 Unknown, Notinfile PCP - General 11/27/22 01/06/24 Mariella Moon NP [address] [place] [address] PCP - General Family Medicine 01/07/24 documented as of this encounter
--- OUTSIDE RECORDS SUMMARY | 2025-01-11 08:09 | XMS_ITS | Encounter Summary ---
Author Organization [facility] Address [address] [place] [address] Phone Care Team Providers Care Sand Caster Apprentice Name Role Phone Gina West C D AREA SUPERVISOR Primary Care Provider [phone] Unknown, Notinfile Primary Care Provider Unavail Mariella Jay C D AREA SUPERVISOR Primary Care Provider [phone] Encounter Details Date Type Department Care Team [...] on file Legal Sex Male 11:46 AM DOCK OPERATIONS SUPERVISOR Gender Identity Male 02/13/2021 12:32 PM DOCK OPERATIONS SUPERVISOR Sexual Orientation Straight 09/22/2020 1: 13 PM [...] COVID: Suspected 01/26/2024 01/26/2024 01/26/2024 7:47 PM DOCK OPERATIONS SUPERVISOR documented as of this encounter Care Teams Sand Caster Apprentice Relationship Specialty Start Date End Date Gina West NP [facility] [address] PCP - General Nurse Practitioner 09/21/21 11/26/22 Unknown, Notinfile PCP - General 11/27/22 01/06/24 Mariella Moon NP [address] [place] [address] PCP - General Family Medicine 01/07/24 documented as of this encounter
--- OUTSIDE RECORDS SUMMARY | 2025-01-11 08:09 | XMS_ITS | Clinical Summary ---
Author Organization [facility] Care Team Providers Care Gauntlet Pairer Name Role Phone Unavailable Primary Care Provider [...] Comments Hepatitis C Virus (HCV) Screening 1962 Cologuard 08/03/2007 Colonoscopy 08/03/2007 Colorectal Cancer Screening 08/03/2007 Immunochemical Fecal Occult Blood 08/03/2007 Pneumococcal Immunization (5 0+ years) (1 of 1 - PCV) 2012 Zoster Immunization (1 of 2) 2012 Influenza Immunization (#1) 2024 SARS-COV-2 Immunization ( season) 2024 01/31/2021, 05/23/2020, 04/14/2020 Respiratory Syncytial Virus (RSV) Immunization (Adult) (1 - 1-dose 75+ series) 2037 DTaP/Tdap/Td Immunization Discontinued 06/10/2018 TdaP Immunization Completed 06/10/2018 Hepatitis B Immunization Aged Out No longer eligible based on patient's age to complete this topic Human Papillomavirus (HPV) Immunization Aged Out No longer eligible based on patient's age to complete this topic Meningococcal Immunization (ACWY) Aged Out No longer eligible based on patient's age to complete this topic Rotavirus Immunization Aged Out No lo nger eligible based on patient's age to complete this topic
--- OUTSIDE RECORDS SUMMARY | 2025-01-11 08:09 | XMS_ITS | Data Portability ---
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 Plan of Treatment Reminders Order Date Submit Date Provider Last Modified By Organization Details Last Modified Time Details Appointments None recorded. Lab None recorded. Referral None recorded. Procedures None recorded. Surgeries None recorded. Imaging None recorded. Medication Orders Zithromax Z-Jah 250 mg tablet 2022 023 [email or web address] [facility]/Pharmacy #[id number], [address] [facility] [facility], [place], [address], 3 16:36:33 benzonatate 200 mg capsule 2022 023 [facility]/Pharmacy #[id number], [address] [facility], [place], [address], 3 08:18:10 Flonase Allergy Relief 50 mcg/actuati on nasal spray,suspe nsion 2022 023 [facility]/Pharmacy #[id number], [address] [facility], [place], [address], 3 08:32:41 Patient TargetsNo targets recorded. Patient InstructionsNo instructions recorded. Reason for Referral None Reported. Results Created Date Observation Date Name Description Value Unit Range Abnormal Flag Note LastModifiedBy Organization Detail LastModifiedTime 09/19/19 22 09/19/2021 FOREST/A NTINU CLEAR ANTIB ODIES ,IFA antinuclear antibodies, ifa negati ve Negat regina <1:80 Borde rline 1:80 Posit regina >1:80 ICAP nomjose carlos herndon re: AC-0 For more infor jody herring about Hep-2 cell patte rns use [facility]NAcal[facility] ttern s.org , the offic carmelo lombardo for the Inter natio nal Conse nsus on Antin uclea r Antib nick (FOREST) Patte rns (ICAP ). Perfo rmed at: [facility], [place] [address] [facility], [place] [address] Lab Direc tor: Javi layton PhD, Phone : [phone] Not Available [facility] (Lab) [address] [place], [address], 09/19/2021 15:09:48 09/19/19 22 09/18/2021 FOLAT E, SERUM /PLAS MA folate 3.26 NG/mL 2.76-2 0.0 Not Available [facility] (Lab) [address] [place], [address], 09/18/2021 14:14:05 09/19/19 22 09/18/2021 VITAM IN B12 (DIDI PRAKASH ) vb12 369 pg/mL 239-93 1 Not Available [facility] (Lab) [address] [place], [address], 09/18/2021 14:14:00 09/19/19 22 09/18/2021 SEDIM ENTAT ION RATE erythrocyte sedimentatio n rate 7 mm/HR 0-20 Not Available [facility] (Lab) [address] [place], [address], 09/18/2021 13:17:18 09/19/19 22 09/18/2021 C REACT REGINA PROTE IN,UL TRA SENS C-reactive protein 0.14 mg/dL 0.0-0. 5 Not Available [facility] (Lab) [address] [place], [address], 09/18/2021 13:04:15 08/08/20 22 09/18/2021 COMP MET PANEL /LIVE R alanine aminotransfe rase 52 U/L 0-50 high Not Available [facility] (Lab) [address] [place], [address], 09/18/2021 13:04:13 09/19/19 22 09/18/2021 COMP MET PANEL /LIVE R aspartate aminotransfe rase 37 U/L 15-46 Not Available [facility] (Lab) [address] [place], [address], 09/18/2021 13:04:13 09/19/19 22 09/18/2021 COMP MET PANEL /LIVE R bilirubin, total 1.30 mg/dL 0.20-1 .30 Not Available [facility] (Lab) [address] [place], [address], 09/18/2021 13:04:13 09/19/19 22 09/18/2021 COMP MET PANEL /LIVE R bilirubin, conjugated (direct) 0.00 mg/dL 0.00-0 .30 Not Available [facility] (Lab) [address] [place], [address], 09/18/2021 13:04:13 09/19/19 22 09/18/2021 COMP MET PANEL /LIVE R biliurubin,u ncong. (indirect) 1.10 mg/dL 0.00-1 .1 Not Available [facility] (Lab) [address] [place], [address], 09/18/2021 13:04:13 09/19/19 22 09/18/2021 COMP MET PANEL /LIVE R calcium 8.9 mg/dL 8.4-10 .2 Not Available [facility] (Lab) [address] [place], [address], 09/18/2021 13:04:13 09/19/19 22 09/18/2021 COMP MET PANEL /LIVE R total protein 6.2 g/dL 6.3-8. 2 low Not Available [facility] (Lab) [address] [place], [address], 09/18/2021 13:04:13 09/19/19 22 09/18/2021 COMP MET PANEL /LIVE R albumin 4.1 g/dL 3.4-5. 0 Not Available [facility] (Lab) [address] [place], [address], 09/18/2021 13:04:13 09/19/19 22 09/18/2021 COMP MET PANEL /LIVE R globulin 2.1 g/dL 2.6-4. 2 low Not Available [facility] (Lab) [address] [place], [address], 09/18/2021 13:04:13 09/19/19 22 09/18/2021 COMP MET PANEL /LIVE R A/G ratio 2.0 ratio 1.0-2. 0 Not Available [facility] (Lab) [address] [place], [address], 09/18/2021 13:04:13 09/19/19 22 09/18/2021 COMP MET PANEL /LIVE R sodium 138 mmol/ L 137-14 5 Not Available [facility] (Lab) [address] [place], [address], 09/18/2021 13:04:13 09/19/19 22 09/18/2021 COMP MET PANEL /LIVE R potassium 3.9 mmol/ L 3.5-5. 1 Not Available [facility] (Lab) [address] [place], [address], 09/18/2021 13:04:13 09/19/19 22 09/18/2021 COMP MET PANEL /LIVE R chloride 102 mmol/ L 98-107 Not Available [facility] (Lab) [address] [place], [address], 09/18/2021 13:04:13 09/19/19 22 09/18/2021 COMP MET PANEL /LIVE R carbon dioxide 30 mmol/ L 22-30 Not Available [facility] (Lab) [address] [place], [address], 09/18/2021 13:04:13 09/19/19 22 09/18/2021 COMP MET PANEL /LIVE R anion gap 9.9 mmol/ L 14-22 low Not Available [facility] (Lab) [address] [place], [address], 09/18/2021 13:04:13 09/19/19 22 09/18/2021 COMP MET PANEL /LIVE R glucose 99 mg/dL 70-99 Not Available [facility] (Lab) [address] [place], [address], 09/18/2021 13:04:13 09/19/19 22 09/18/2021 COMP MET PANEL /LIVE R BUN 11 mg/dL 8-19 Not Available [facility] (Lab) [address] [place], [address], 09/18/2021 13:04:13 09/19/19 22 09/18/2021 COMP MET PANEL /LIVE R creatinine 1.04 mg/dL 0.66-1 .25 Not Available [facility] (Lab) [address] [place], [address], 09/18/2021 13:04:13 09/19/19 22 09/18/2021 COMP MET PANEL /LIVE R GFR >60 Refer ence Range : Andrews ge GFR Healt hy Adult : >60 mL/mi n/1.7 3 m2 Chron ic Kidne y Disea se: 15-60 mL/mi n/1.7 3 m2 Kidne y Failu re: <15/m L/min /1.73 m2 www.n iddk. nih.g ov The MDRD study equat ion has not been valid ated in child yefri <18 years of age; pregn ant women ; the elder ly >85 years of age; or in some racia l or ethni c subgr oups, such as Hispa nics. Outsi de the valid ated farooq eters , estim ated GFR is less accur ate, requi ring clini fredrick judgm ent on a case- by-ca se basis . Clini fredrick inter preta tion for other races and ages must be made by the clini katelin. The MDRD study equat ion has not been valid ated for the evalu ation of serum creat inine relat ed to nutri lanette l statu s or medic ation usage . For perso ns <18 years of age, a pedia tric GFR calcu lator is avail able on the [facility] websi te: https ://yanni w.kid regine.o rg/pr ofess ional s/kdo qi/gf r_cal culat or Not Available [facility] (Lab) [address] [place], [address], 09/18/2021 13:04:13 09/19/19 22 09/18/2021 COMP MET PANEL /LIVE R alkaline phosphatase 56 U/L 38-126 Not Available [facility] (Lab) [address] [place], [address], 09/18/2021 13:04:13 09/19/19 22 09/18/2021 MAGNE SIUM magnesium 2.0 mg/dL 1.6-2. 3 Not Available [facility] (Lab) [address] [place], [address], 09/18/2021 13:04:05 09/19/19 22 09/18/2021 CBC/C OMPLE TE BLD COUNT W/DIF F white blood cells 4.3 x10'3 /uL 4.2-10 .8 Not Available [facility] (Lab) [address] [place], [address], 09/18/2021 12:56:14 09/19/19 22 09/18/2021 CBC/C OMPLE TE BLD COUNT W/DIF F red blood cells 5.79 x10'6 /uL 4.10-5 .80 Not Available [facility] (Lab) [address] [place], [address], 09/18/2021 12:56:14 09/19/19 22 09/18/2021 CBC/C OMPLE TE BLD COUNT W/DIF F hemoglobin 16.6 g/dL 13.2-1 7.0 Not Available [facility] (Lab) [address] [place], [address], 09/18/2021 12:56:14 09/19/19 22 09/18/2021 CBC/C OMPLE TE BLD COUNT W/DIF F hematocrit 50.3 % 39.3-5 0.0 high Not Available [facility] (Lab) [address] [place], [address], 09/18/2021 12:56:14 09/19/19 22 09/18/2021 CBC/C OMPLE TE BLD COUNT W/DIF F mean red cell volume 86.9 fL 80.0-9 7.0 Not Available [facility] (Lab) [address] [place], [address], 09/18/2021 12:56:14 09/19/19 22 09/18/2021 CBC/C OMPLE TE BLD COUNT W/DIF F mean red cell hemoglobin 28.7 pg 27.0-3 3.0 Not Available [facility] (Lab) [address] [place], [address], 09/18/2021 12:56:14 09/19/19 22 09/18/2021 CBC/C OMPLE TE BLD COUNT W/DIF F mean RBC HGB concentratio n 33.0 g/dL 31.0-3 6.0 Not Available [facility] (Lab) [address] [place], [address], 09/18/2021 12:56:14 09/19/19 22 09/18/2021 CBC/C OMPLE TE BLD COUNT W/DIF F red cell distribution width 13.2 % 11.8-1 5.5 Not Available [facility] (Lab) [address] [place], [address], 09/18/2021 12:56:14 09/19/19 22 09/18/2021 CBC/C OMPLE TE BLD COUNT W/DIF F platelets 164 x10'3 /uL 150-40 0 Not Available [facility] (Lab) [address] [place], [address], 09/18/2021 12:56:14 09/19/19 22 09/18/2021 CBC/C OMPLE TE BLD COUNT W/DIF F mean platelet volume 11.0 fL 9.0-12 .4 Not Available [facility] (Lab) [address] [place], [address], 09/18/2021 12:56:14 09/19/19 22 09/18/2021 CBC/C OMPLE TE BLD COUNT W/DIF F neutrophils 57.4 % 39.0-7 2.0 Not Available [facility] (Lab) [address] [place], [address], 09/18/2021 12:56:14 09/19/19 22 09/18/2021 CBC/C OMPLE TE BLD COUNT W/DIF F lymphocytes 29.3 % 16.0-4 7.0 Not Available [facility] (Lab) [address] [place], [address], 09/18/2021 12:56:14 09/19/19 22 09/18/2021 CBC/C OMPLE TE BLD COUNT W/DIF F monocytes 8.4 % 5.0-12 .0 Not Available [facility] (Lab) [address] [place], [address], 09/18/2021 12:56:14 09/19/19 22 09/18/2021 CBC/C OMPLE TE BLD COUNT W/DIF F eosinophils 4.2 % 1.0-7. 0 Not Available [facility] (Lab) [address] [place], [address], 09/18/2021 12:56:14 09/19/19 22 09/18/2021 CBC/C OMPLE TE BLD COUNT W/DIF F basophils 0.7 % 0.0-2. 0 Not Available [facility] (Lab) [address] [place], [address], 09/18/2021 12:56:14 09/19/19 22 09/18/2021 CBC/C OMPLE TE BLD COUNT W/DIF F immature granulocytes 0.0 % 0.00-0 .50 Not Available [facility] (Lab) [address] [place], [address], 09/18/2021 12:56:14 09/19/19 22 09/18/2021 CBC/C OMPLE TE BLD COUNT W/DIF F neutrophils, absolute count 2.45 x10'3 /uL 1.5-8. 0 Not Available [facility] (Lab) [address] [place], [address], 09/18/2021 12:56:14 09/19/19 22 09/18/2021 CBC/C OMPLE TE BLD COUNT W/DIF F lymphocytes, absolute count 1.25 x10'3 /uL 1.07-3 .43 Not Available [facility] (Lab) [address] [place], [address], 09/18/2021 12:56:14 09/19/19 22 09/18/2021 CBC/C OMPLE TE BLD COUNT W/DIF F monocytes, absolute count 0.36 x10'3 /uL 0.29-0 .99 Not Available [facility] (Lab) [address] [place], [address], 09/18/2021 12:56:14 09/19/19 22 09/18/2021 CBC/C OMPLE TE BLD COUNT W/DIF F eosinophils, absolute count 0.18 x10'3 /uL 0.02-0 .53 Not Available [facility] (Lab) [address] [place], [address], 09/18/2021 12:56:14 09/19/19 22 09/18/2021 CBC/C OMPLE TE BLD COUNT W/DIF F basophils, absolute count 0.03 x10'3 /uL 0.01-0 .08 Not Available [facility] (Lab) [address] [place], [address], 09/18/2021 12:56:14 09/19/19 22 09/18/2021 CBC/C OMPLE TE BLD COUNT W/DIF F immature granulocytes ,absolute 0.00 x10'3 /uL 0.00-0 .05 Not Available [facility] (Lab) [address] [place], [address], 09/18/2021 12:56:14 09/19/19 22 09/18/2021 CBC/C OMPLE TE BLD COUNT W/DIF F nucleated red blood cells 0.0 % -0 Not Available [facility] (Lab) [address] [place], [address], 09/18/2021 12:56:14 09/19/19 22 09/18/2021 CBC/C OMPLE TE BLD COUNT W/DIF F NRBC# 0.00 x10'3 /uL Not Available [facility] (Lab) [address] [place], [address], 09/18/2021 12:56:14 09/19/19 22 09/18/2021 XR, lumba r spine No observ ation record ed. [id number], [place], [address], 04/11/2022 21:36:20 09/19/19 22 09/18/2021 XR, shoul alejandro, 2 or more view No observ ation record ed. [id number] [facility] Add On Lab Orders [address] [place], [address], 04/11/2022 21:36:20 09/19/19 XR, lumbo sacra l spine , 4 or more view [facility] [address], [place] [address] Mayra t Name: LANDEN GTZ V Access ion #: [id number] Sex: M : 1960 1 Locati on: MO2 Attend ing Physic juana: ANDI ANN Orderi Physic juana: ANDI ANN Exam Date: 09/19/19 9:04 AM Exam Name: XR L SPINE 4V+ Admitt ing Diagno sis(es ): RADIOL OGY REPORT - FINAL EXAM: XR L SPINE 4V+ HISTOR Y: chroni c low back pain COMPAR MATIAS: 2020 TECHNI QUE: AP, bilate ral obliqu e's, latera l, and coned latera l views of the lumbar sacral juncti on. FINDIN GS: Examin ation of the lumbar spine demons trates modera te to severe degene rative change s greate st at L5-S1, stable . Facet hypert rophy is re-kiki ntifie d, stable at L4-5 and L5-S1. Bony pedicl es appear intact . There is no radiog raphic eviden ce of spondy lolysi s or spondy lolist hesis. The sacral iliac joints appear normal . There is no fractu re or bone destru ction Page 1 of 2 [facility] Kristajose carlos heather Name: LANDEN GTZ José V Access ion #: [id number] Sex: M : 1960 1 Exam Date: 09/19/19 22 9:04 AM Exam Name: XR L SPINE 4V+ Admitt ing Diagno sis(es ): identi fied. Cholec ystect rylie clips re-kiki ntifpablo d.. If clinic al sympto ms roula romero, MRI examin ation could be consid ered. IMPRES JUANCARLOS: No acute proces s or signif icant interv al change . Create d and electr onical ly signed by: Charles vital MD Signed Date: 09/19/19 10:11 AM (CT) Dictat ed by: Charles vital MD (CT) (CT) Page 2 of 2 [id number] [facility] (Imaging) [address] [place], [address], 04/11/2022 21:36:20 09/19/19 22 XR, cervi fredrick spine , 2 or 3 view [facility] [address] [place] [address] Patijose carlos t Name: LANDEN GTZ V Access ion #: [id number] Sex: M : 1960 1 Locati on: MO2 Attend ing Physic juana: ANDI ANN Orderi Physic juana: ANDI ANN Exam Date: 09/19/19 9:04 AM Exam Name: XR C SPINE 2-3V Admitt ing Diagno sis(es ): RADIOL OGY REPORT - FINAL EXAM: XR C SPINE 2-3V HISTOR Y: neck pain fell dimini shed range of motion COMPAR MATIAS: 2020 TECHNI QUE: AP, latera l, and AP open-m outh odonto id images are evalua roma. FINDIN GS: Verteb ral bodies demons trate mild stable leftwa rd convex ity on the AP view and mild stable revers al of the normal cervic al lordos is on the latera l projec tion with preser vation of verteb ral body height . Interv ertebr al disc spaces are remark able for modera te to severe multil evel degene rative change s greate st at the C4-5, C5-6 and C6-7 disc space levels . The prever tebral soft tissue s are normal . The rose grower ior elemen ts aligne d anatom ically . If clinic al Page 1 of 2 [facility] Patijose carlos t Name: LANDEN GTZ José V Access ion #: [id number] Sex: M : 1960 1 Exam Date: 09/19/19 9:04 AM Exam Name: XR C SPINE 2-3V Admitt ing Diagno sis(es ): sympto ms persis t or worsen , then follow -up x-ray is recomm ended in 5-7 days. IMPRES JUANCARLOS: No acute proces s, see above. Create d and electr onical ly signed by: Charles vital MD Signed Date: 09/19/19 10:06 AM (CT) Dictat ed by: Charles vital MD (CT) (CT) Page 2 of 2 [id number] [facility] (Imaging) [address] [place], [address], 04/11/2022 21:36:20 09/19/19 22 09/18/2021 XR, lumba r spine No observ ation record ed. [id number] [facility] Add On Lab Orders [address] [place], [address], 04/11/2022 21:36:20 09/19/19 22 sumeet alejandro 2vws, holli [facility] [address] [place] [address] Patien t Name: MARIAMA Segundo LANDEN Kumar V Access ion #: [id number] Sex: M : 1960 1 Locati on: MO2 Attend ing Physic juana: ANDI ANN Orderi ng Physic juana: UVALDO HeatherANDI Exam Date: 09/19/19 9:04 AM Exam Name: XR SHOULD ER BILAT 2V+ Admitt ing Diagno sis(es ): RADIOL OGY REPORT - FINAL EXAM: XR SHOULD ER BILAT 2V+ HISTOR Y: should er pain COMPAR MATIAS: Left should er radiog raph 2020 TECHNI QUE: Four views of the bilate ral should ers were perfor med. FINDIN GS: No acute fractu re, sublux ation, disloc ation, or destru ctive proces s. Modera te AC joint hypert rophy noted bilate rally. Reacti ve change s noted at the greate r tubero sity on the left, mild. IMPRES JUANCARLOS: No acute proces s, see above. Page 1 of 2 [facility] Name: LANDEN GTZ V Access ion #: [id number] Sex: M : 1960 1 Exam Date: 09/19/19 9:04 AM Exam Name: XR SHOULD ER BILAT 2V+ Admitt ing Diagno sis(es ): Create d and electr onical ly signed by: Charles vital MD Signed Date: 09/19/19 10:10 AM (CT) Dictat ed by: Charles viatl MD (CT) (CT) Page 2 of 2 [id number] [facility] (Imaging) [address] [place], [address], 04/11/2022 21:36:20 05/05/19 23 05/03/2022 cardi ac stres s test No observ ation record ed. [email or web address] [facility] [address], [place], [address], 05/07/2022 09:12:26 06/19/19 23 06/18/2022 NM, myoca rdial perfu juancarlos scan No observ ation record ed. [email or web address] [facility] [address], [place], [address], 06/18/2022 16:30:05 Result Notes None recorded. Problems Name Problem SNOMED Code Status Onset Date Resolution Date Notes Provider Name and Address Organization Details Recorded Time Myocardial infarction 95151841 Active 2017 Not Available [facility] 3 21:34:57 Mixed anxiety and depressive disorder 012134474 Active 2018 Not Available [facility] 3 21:34:57 Benign prostatic hyperplasi a with outflow obstructio n 947773042 Active 2018 Not Available [facility] 3 21:34:57 Gastroesop hageal reflux disease without esophagiti s 945968678 Active 2018 Not Available [facility] 3 21:34:57 Family history of cancer of colon 210347602 Active 2018 Not Available [facility] 3 21:34:58 Attention deficit hyperactiv ity disorder, predominan tly inattentiv e type 33612610 Active 2018 Not Available [facility] 3 21:34:58 Hypertensi ve disorder 24152088 Active 2018 Not Available [facility] 3 21:34:58 Obesity 337678261 Active 2018 Not Available [facility] 3 21:34:58 Hyperlipid emia 88992917 Active 2018 Not Available [facility] 3 21:34:59 Sleep apnea 16690259 Active 2018 Not Available [facility] 3 21:34:59 Chronic low back pain 814478615 Active 2018 Not Available [facility] 3 21:34:57 Hypertrigl yceridemia 305048264 Active 2018 Not Available [facility] 3 21:34:57 Degenerati on of lumbar interverte bral disc 64037609 Active 2018 Not Available [facility] 3 21:34:57 Obstructiv e sleep apnea syndrome 76443508 Active 2018 Not Available [facility] 3 21:34:59 Osteoarthr itis 315317112 Active 2020 Not Available [facility] 3 21:34:58 Influenza vaccinatio n declined 661962224 Active 2020 Not Available [facility] 3 21:34:58 History of operative procedure on knee 991638775 Active 2020 Not Available [facility] 3 21:34:59 Arthritis 6802848 Active 2021 Not Available [facility] 3 21:34:58 Attention deficit hyperactiv ity disorder 120595355 Active 2022 [facility] [address], [place], [address] , [facility] 3 13:52:24 Bilateral tinnitus 0406788096617 Active 2022 CALI Lawrence [address], [address], [place], [address] , [facility] 3 08:29:24 Lumbar radiculopa thy 186687623 Active 2022 [facility] Lawrence [address], [address], [place], [address] , [facility] 3 08:11:05 Acute sinusitis 04588637 Active 2022 [facility]I Lawrence [address], [place], [address] , [facility] 3 08:16:15 Problem Notes None recorded. Procedures Surgical History Date Name Laterality Status Provider Name and Address Organization Details Recorded Time removal completed Not Available [facility] 02/2022 21:34:02 Hernia Repair completed Not Available [facility] 04/11/2022 21:34:02 Tonsillectomy completed Not Available [facility] 04/11/2022 21:34:02 removal completed Not Available [facility] 02/2022 21:34:02 repair of vein completed Not Available [facility] 04/11/2022 21:34:02 Cholecystectomy completed Not Available [facility] 04/11/2022 21:34:02 Imaging Results None recorded. Procedure Notes None recorded. Medical Equipment None Reported. Allergies No known drug allergies Medications Name Sig Start Date Stop Date Status Note LastModified by Organization Details LastModified Time cyclobenza maria r 10 mg tablet TAKE 1/2-1 TABLET BY MOUTH 3 TIMES DAILY NEEDED FOR MUSCLE SPASMS/B ACK PAIN active Not Available Not Available No t Available atorvastat in 40 mg tablet TAKE 1 TABLET BY MOUTH EVERY DAY active Not Available Not Available No t Available silver sulfadiazi ne 1 % topical cream APPLY A 1/16 INCH (1.5 MM) THICK LAYER EXTERNAL LY TO THE ENTIRE BURN AREA TWICE DAILY 06/24 completed Not Available Not Available Not Available doxycyclin e hyclate 100 mg capsule Take 1 capsule twice a day by oral route for 14 days. 04/15 completed Not Available Not Available Not Available atorvastat in 20 mg tablet TAKE ONE TABLET DAILY -- STOP THE ROSUVAST ATIN 11/20 completed Not Available Not Available Not Available trazodone 50 mg tablet TAKE 1 TABLET BY MOUTH AT BEDTIME 11/20 completed Not Available Not Available Not Available azithromyc in 250 mg tablet TAKE 2 TABLETS BY MOUTH TODAY, THEN TAKE 1 TABLET DAILY FOR 4 DAYS 07/23 completed Not Available Not Available Not Available aspirin 325 mg tablet 09/18 completed Not Available Not Available Not Available benzonatat e 200 mg capsule TAKE 1 CAPSULE BY MOUTH THREE TIMES A DAY NEEDED FOR COUGH 2022 active Not Available Not Available Not Avai lable hydrocodon e 5 mg-acetami nophen 325 mg tablet 12/13 completed Not Available Not Available Not Available meloxicam 15 mg tablet TAKE 1 TABLET BY MOUTH ONCE DAILY 06/12 completed Not Available Not Available Not Available ondansetro n HCl 4 mg tablet 03/26 completed Not Available Not Available Not Available isosorbide mononitrat e ER 30 mg tablet,ext ended release 24 hr TAKE 1 TABLET BY MOUTH EVERY DAY active Not Available Not Available No t Available clonazepam 0.5 mg tablet TAKE 1 TABLET BY MOUTH TWICE DAILY 11/20 completed Not Available Not Available Not Available phentermin e 15 mg capsule Take 1 capsule every day by oral route before meals for 30 days. 03/02 completed 30 [address] Not Available Not Available Not Available metronidaz ole 500 mg tablet Take 1 tablet every 8 hours by oral route for 10 days. active Not Available Not Available No t Available amlodipine 5 mg tablet TAKE 1 TABLET BY MOUTH ONCE DAILY active Not Available Not Available No t Available ciprofloxa sowmya 500 mg tablet TAKE 1 TABLET BY MOUTH EVERY 12 HOURS FOR 10 DAYS 06/12 completed Not Available Not Available Not Available hydrocodon e 10 mg-acetami nophen 325 mg tablet 01/30 completed Not Available Not Available Not Available omeprazole 40 mg capsule,de layed release TAKE 1 CAPSULE BY MOUTH ONCE DAILY 30 MINUTES BEFORE A MEAL active Not Available Not Available No t Available aspirin 81 mg tablet,del ayed release TAKE ONE TABLET DAILY WITH A MEAL active Not Available Not Available No t Available tramadol 50 mg tablet TAKE 1 TABLET BY MOUTH EVERY 8 HOURS NEEDED FOR PAIN 03/26 completed Not Available Not Available Not Available ketorolac 10 mg tablet 10/04 completed Not Available Not Available Not Available meloxicam 7.5 mg tablet Take 1 po daily prn 06/24 completed Not Available Not Available Not Available methocarba mol 750 mg tablet Take 1 tablet twice a day by oral route as needed for 10 days. active Not Available Not Available No t Available aspirin 325 mg tablet,del ayed release TAKE ONE TABLET DAILY 11/20 completed Not Available Not Available Not Available tamsulosin 0.4 mg capsule TAKE 1 CAPSULE BY MOUTH EVERY DAY active Not Available Not Available No t Available dextroamph etamine-am phetamine ER 20 mg 24hr capsule,ex tend release Take 1 capsule every day by oral route. 05/24 completed Not Available Not Available Not Available Kenalog 10 mg/mL suspension for injection In office injectio n administ ered by the provider 09/07 completed [facility]: 0003-04 94-20 Not Available Not Available Not Available amlodipine 10 mg tablet TAKE 1 TABLET BY MOUTH EVERY DAY active Not Available Not Available No t Available benzonatat e 100 mg capsule TAKE 1 CAPSULE BY MOUTH THREE TIMES A DAY active Not Available Not Available No t Available fluoxetine 20 mg tablet TAKE 1 TABLET BY MOUTH EVERY DAY FOR 1 MONTH active Not Available Not Available No t Available prednisone 50 mg tablet TAKE 1 TABLET BY MOUTH EVERY DAY 03/26 completed Not Available Not Available Not Available losartan 25 mg tablet TAKE 1 TABLET BY MOUTH EVERY DAY active Not Available Not Available No t Available nitroglyce rin 0.4 mg sublingual tablet DISSOLVE 1 TABLET (0.4 MG TOTAL) UNDER THE TONGUE EVERY 5 (FIVE) MINUTES NEEDED FOR CHEST PAIN. IF TAKING THE 3RD DOSE CALL 911 05/24 completed Not Available Not Available Not Available gabapentin 300 mg capsule TAKE 1 CAPSULE BY MOUTH THREE TIMES A DAY active Not Available Not Available No t Available hydroxyzin e HCl 25 mg tablet TAKE 1 TABLET BY MOUTH EVERY 8 HOURS NEEDED FOR ANXIETY 11/20 completed Not Available Not Available Not Available methylpred nisolone 4 mg tablets in a dose pack TAKE 6 TABLETS ON DAY 1 DIRECTED ON PACKAGE AND DECREASE BY 1 TAB EACH DAY FOR A TOTAL OF 6 DAYS active Not Available Not Available No t Available albuterol sulfate HFA 90 mcg/actuat ion aerosol inhaler INHALE 2 PUFFS BY MOUTH 4 TIMES DAILY NEEDED FOR SHORTNES S OF BREATH OR WHEEZING 03/26 completed Not Available Not Available Not Available celecoxib 100 mg capsule TAKE 1 CAPSULE BY MOUTH TWICE A DAY active Not Available Not Available No t Available fluticason e propionate 50 mcg/actuat ion nasal spray,susp ension SPRAY 1 SPRAY INTO EACH NOSTRIL EVERY DAY active Not Available Not Available No t Available doxycyclin e hyclate 100 mg tablet 03/02 completed Not Available Not Available Not Available amoxicilli n 875 mg-potassi um clavulanat e 125 mg tablet TAKE 1 TABLET BY MOUTH TWICE A DAY active Not Available Not Available No t Available oxycodone 5 mg tablet Take 1 tablet every 4 hours by oral route. active Not Available Not Available No t Available escitalopr am 10 mg tablet TAKE ONE TABLET DAILY 11/20 completed Not Available Not Available Not Available escitalopr am 20 mg tablet TAKE ONE TABLET DAILY 11/20 completed Not Available Not Available Not Available rosuvastat in 10 mg tablet TAKE 1 TABLET DAILY IN THE EVENING 11/20 completed Not Available Not Available Not Available lidocaine (PF) 10 mg/mL (1 %) injection solution In office injectio n administ ered by the provider 09/09 completed [facility]: [id number] 76-17 Not Available Not Available Not Available aripiprazo le 2 mg tablet TAKE ONE TABLET DAILY 11/20 completed Not Available Not Available Not Available Vyvanse 30 mg capsule TAKE 1 CAPSULE BY MOUTH EVERY DAY active Not Available Not Available No t Available Vyvanse 20 mg capsule TAKE 1 CAPSULE BY MOUTH EVERY DAY 05/24 completed Not Available Not Available Not Available Vyvanse 10 mg capsule TAKE 1 CAPSULE BY MOUTH EVERY DAY active Not Available Not Available No t Available Vitals Date Recorded Body mass index (BMI) Body height Oxygen saturation Heart rate Body temperature Body weight Systolic And Diastolic Provider Name and Address Organization Details Last Updated DateTime 3 34.6 kg/m2 165.1 cm 98 % 76 /min 97.7 [degF] 75894.2 1 g 120/80 mm[Hg] Not Available [facility] 3 21:34:41 Date Recorded Systolic And Diastolic Provider Name and Address Organization Details Last Updated DateTime 04/25/2022 148/98 mm[Hg] Renetta Lawrence [address] [place] [address], [address], [address], [employer] [facility] [place] 04/25/2022 08:32:55 Date Recorded Body height Body mass index (BMI) Body weight Body temperature Heart rate Oxygen saturation Systolic And Diastolic Provider Name and Address Organization Details Last Updated DateTime 3 165.1 cm 34.9 kg/m2 96159.4 g 98.4 [degF] 63 /min 97 % 161/92 mm[Hg] Azalea Heller MA [facility] [employer] [facility] [place] 3 08:18:10 Date Recorded Body height Body mass index (BMI) Body weight Body temperature Heart rate Oxygen saturation Systolic And Diastolic Provider Name and Address Organization Details Last Updated DateTime 3 165.1 cm 34.8 kg/m2 14505.8 1 g 98.3 [degF] 64 /min 98 % 120/80 mm[Hg] Azalea Heller MA [employer] [facility] [place] 3 08:05:48 Date Recorded Body height Body mass index (BMI) Body weight Body temperature Heart rate Oxygen saturation Systolic And Diastolic Provider Name and Address Organization Details Last Updated DateTime 3 165.1 cm 34.9 kg/m2 18784.4 g 97.4 [degF] 62 /min 99 % 118/78 mm[Hg] Esther barrientos CMA [facility] [employer] [facility] 3 08:07:18 Date Recorded Body mass index (BMI) Body height Oxygen saturation Heart rate Body temperature Body weight Systolic And Diastolic Provider Name and Address Organization Details Last Updated DateTime 2 33.8 kg/m2 165.1 cm 96 % 66 /min 98.1 [degF] 85286.2 5 g 120/84 mm[Hg] Not Available [employer] 3 21:34:41 Social History Question Answer Notes LastModified by Organizat ion Details LastModified Time Tobacco Smoking Status Never Smoker Judy Evan rizzo, [facility] [employer] [facility] 05/23/2022 08:00:00 Do You Have An Advance Directive? No [id number] Information not available 04/11/2022 What Is Your Level Of Caffeine Consumption? Occasional [id number] Information not available 04/11/2022 How Much Tobacco Do You Chew? None [id number] Information not available 04/11/2022 In The 14 Days Before Symptom Onset, Have You Had Close Contact With A Laboratory-confirm ed COVID-19 While That Case Was Ill? No [email or web address] Information n ot available 05/23/2022 In The 14 Days Before Symptom Onset, Have You Had Close Contact With A Person Who Is Under Investigation For COVID-19 While That Person Was Ill? No [email or web address] Information not available 05/23/2022 What Type Of Diet Are You Following? REGULAR [id number] Information not available 04/11/2022 Which Illicit Or Recreational Drugs Have You Used? No [email or web address] Information not available 05/23/2022 Are There Any Guns Present In Your Home? No [email or web address] Information not available 05/23/2022 Do You Use Sunscreen Routinely? No Information not available 05/23/2022 Has Tobacco Cessation Counseling Been Provided? No [email or web address] Information not available 05/23/2022 Do You Have Any Dietary Restrictions? No [email or web address] Information not available 05/23/2022 Sex: Unknown Functional Status Question Answer Note LastModified by Organizat ion Details LastModified Time Do you use any illicit or recreational drugs? No [email or web address] Information not available 05/23/2022 Do you or have you ever used any other forms of tobacco or nicotine? No [email or web address] Information not available 05/23/2022 What is your level of alcohol consumption? 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 Occasional [id number] Information not available 04/11/2022 Mental Status None recorded. Family History Relationship Description Onset Age of this Age Resolved Age Notes LastModified by Organization Details LastModified Time Brother Family history of malignant neoplasm skin cancer [email or web address] Not available 05/23/2022 07:59:59 Mother Family history of malignant neoplasm colon cancer [email or web address] Not available 05/23/2022 07:59:59 Mother Parkinson's disease [email or web address] Not available 2022 07:59:59 Unspecified Relation Hypertensive disorder [id number] Not available 04/11/2022 21:34:05 Father Diabetes mellitus [id number] Not available 04/11/2022 21:34:05 Father Heart disease [id number] Not available 04/11/2022 21:34:05 Medical History Condition Response NO SIGNIFICANT PAST MEDICAL HISTORY Y HYPERTENSION Y Immunizations Vaccine Type Date Status Note Provider Nam e and Address Organization Details Recorded Time COVID-19, mRNA, LNP-S, PF, 30 mcg/0.3 mL dose 05/23/2020 completed [facility] 06/25/2022 08:07:24 COVID-19, mRNA, LNP-S, PF, 30 mcg/0.3 mL dose 04/14/2020 completed [facility], [facility] 06/25/2022 08:07:24 COVID-19, mRNA, LNP-S, PF, 30 mcg/0.3 mL dose 02/02/2021 completed [facility], [facility] 06/25/2022 08:07:24 Past Encounters Encounter ID Performer Location Encounter Start Date Encounter Closed Date Diagnosis/Indication Diagnosis SNOMED-CT Code Diagnosis ICD10 Code Diagnosis IMO Codes Diagnosis Note [id number] [facility] [place] [address] [place] [address] 05/24/2020 00:00:00 05/24/2020 09:27:58 [id number] [facility] [place] [address] [place] [address] 07/12/2020 00:00:00 07/12/2020 08:35:18 [id number] Ronnie Chu MD [facility] [place] [address] [place] [address] 09/02/2020 00:00:00 09/12/2020 14:15:42 [id number] Rosie Viramontes MD [facility] [place] [address] [place] [address] 09/07/2020 00:00:00 09/07/2020 13:48:51 [id number] Ronnie Chu MD [facility] [place] [address] [place] [address] 09/09/2020 00:00:00 09/09/2020 13:37:20 [id number] Ronnie Chu MD [facility] [place] [address] [place] [address] 09/19/2020 00:00:00 09/19/2020 14:42:58 [id number] Rosie Viramontes MD [facility] [place] [address] [place] [address] 12/13/2020 00:00:00 12/13/2020 09:01:52 [id number] Rosie Viramontes MD [facility] [place] [address] [place] [address] 01/30/2021 00:00:00 01/30/2021 16:07:43 [id number] Rosie Viramontes MD [facility] [place] [address] [place] [address] 06/12/2021 00:00:00 06/12/2021 08:57:30 [id number] [facility] [place] [address] [place] [address] 09/18/2021 00:00:00 09/18/2021 09:56:13 [id number] [facility] [place] [address] [place] [address] 10/04/2021 00:00:00 10/04/2021 15:29:33 [id number] CALI Lawrence [facility] [place] [address] [facility] [address] [place] [address] 03/26/2022 00:00:00 03/26/2022 18:06:49 [id number] CALI Lawrence [facility] [place] [address] [facility] [address] [place] [address] 04/25/2022 08:03:41 04/25/2022 08:51:16 Hypertensive disorder 48932895 I10 Started on amlodipine 5mg daily, took it for the first time last night. Stopped isosorbide .He will continue f/u and testing with cardiology . They have him scheduled for ECHO 05/03/22 and nuclear stress test 05/17/22. Continue to monitor. Bilateral tinnitus 61112 82277 102 H93.13 Chronic. Comes and goes.Advis ed he try daily flonase. Will add prednisone for flares if needed. [id number] CALI Lawrence [facility] [place] [address] [facility] [address] [place] [address] 05/23/2022 07:59:11 05/23/2022 09:33:18 Lumbar radiculopathy 115149763 M54.16 Followed by pain management . They have recommende d injections which we discussed today, will call them to schedule. Hypertensive disorder 38 613863 I10 Stable. Continue f/u with cardiology . He has had ECHO and stress test scheduled 05/29/22. He also had labs completed but I do not have those yet to review. [id number] CALI Lawrence [facility] Primary Care [facility] [address] [facility] [address] [place] [address] 06/25/2022 07:59:35 06/25/2022 08:20:55 Acute sinusitis 62424015 J01.90 Advised to take medication s as directed, continue otc meds as needed.Pus h fluids, rest.F/u if no improvemen t. Health Concerns Section Related Observation LastModified by Organization Detai ls LastModified Time None Recorded Concern Status LastModified by Organization Details LastModified Time None Recorded Advance Directives Directive N: Payers Insurance Date Sequence Insurance Name Policy Number Policy [place] Covered Member ID [place] Member ID Guarantor Name 12/08/2022 1 [facility] ON OR AFTER 08/11/20 (MEDICAID REPLACEMENT - HMO) [employer] [id number] [employer] 05/22/2022 [facility] [employer] 05/23/2022 2 [facility] ON OR AFTER 08/11/20 (MEDICAID REPLACEMENT - HMO) [employer] [id number] [employer] Notes Date Note Type Note Provider Name and Address Organization Details Recorded Time 04/25/2022 text/html Pt. states he has been checking it at home, highest around 160/109. He will typically see readings in the 130s/80-90s. He does notice headaches when pressures are elevated. Denies chest pain or SOB. He did have appointment with income tax adjuster yesterday and it was also elevated. They have him scheduled for ECHO 05/03/22 and nuclear stress test 05/17/22. He was taken off isosorbide and started on amlodipine 5mg. CALI Lawrence [address] [facility], [facility] [address], [place], [address], [place] [facility] [employer] [facility] 04/25/2022 08:34:41 05/23/2022 text/html Pt. here to follow-up on blood pressure and follow-up with cardiology. CALI Lawrence [address], [place], [address], [employer] [facility] [employer] [facility] 05/23/2022 08:25:02 06/25/2022 text/html Pt. has complaints of cough, congestion and sinus drainage over the last week. He states his got diagnosed with pneumonia last week. He has been taking cough syrup and cough drops. CALI Lawrence [address], [place], [address], [employer] [facility] [employer] [facility] 06/25/2022 08:20:24
--- OUTSIDE RECORDS SUMMARY | 2025-01-11 08:09 | XMS_ITS | Clinical Summary ---
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 Name Role Phone Unavailable Primary Care Provider Unavailabl e Social History Tobacco Use Types Packs/Day Years Used Date Smoking Tobacco: Never Assessed Sex and Gender Information Value Date Recorded Sex Assigned at Not on file Legal Sex Male 4:02 PM [employer] Gender Identity Not on file Sexual Orientation Not on file Plan of Treatment Health Maintenance Due Date Last Done Comments DTAP/TDAP/TD VACCINES (1 - Tdap) 1981 COLORECTAL SCREENING 08/03/2007 Colorectal Cancer Screening 08/03/2007 FIT-DNA Q 3 years 08/03/2007 FIT/FOBT Q 1 year 08/03/2007 Flex Sig/CT Colonography Q 5 years 08/03/2007 ZOSTER VACCINE (1 of 2) 2012 INFLUENZA VACCINE (#1) 2024 RSV VACCINE (60+ or ) (1 - 1-dose 75+ series) [address] [place] [address] [address]WORK [id number] [place] [address]
== END 2025-01-11 08:02 | disposition home or self-care (01) ==
LOC: ANHAUDIO 08:02
PROVIDERS: PCP Nurse Practitioner Family; Visit Provider Nurse Practitioner Family
DX: H91.93 Unspecified hearing loss, bilateral (principal); H93.19 Tinnitus, unspecified ear
CPT/HCPCS: 92557; 92567